=== PATIENT | male | born 1995 | race Caucasian/White ===

== ENCOUNTER 2017-10-16 17:13 | Emergency (ER) | payer OTHER ==
--- NOTE | 2017-10-16 17:31 | EDPHY ---
HPI/HX/ROS/PE/MDM - Data Points Imaging: I viewed and interpreted images myself Narrative: CHIEF COMPLAINT: Right shoulder injury HPI: The patient is a 22 y/o male complaining of a right shoulder injury and pain secondary to falling while snowboarding 3 hours ago. He caught an edge while snowboarding, fell, and immediately had right shoulder pain. Last PO was at 13: 00, 4.5 hours ago. Denies numbness, paresthesias, chest pain, abdominal pain or fever. REVIEW OF SYSTEMS: Aside from elements discussed in the HPI, a comprehensive 10-point review of systems was reviewed and is negative. PMH: Left labrum tear and dislocation SOCIAL HISTORY: Student at , originally from [place], [facility] PHYSICAL EXAM: General: Patient is alert, in no acute distress. ENT: Eyes are normal to inspection. ENT inspection normal. Neck: Normal inspection. Full range of motion. Respiratory: No respiratory distress. Breath sounds normal bilaterally. Cardiovascular: Regular rate and rhythm. Strong peripheral pulses. Normal cap refill. Right upper extremity: Obvious AC stepoff associated with tenderness. Light touch sensation and motor function is preserved in the axillary, median, radial and ulnar nerve distributions. There is a 2+ radial pulse with brisk cap refill. Neuro: Oriented x3. Normal motor function. Normal sensory function. (Dontae Mckenna) ED Course: 1732: BEENA Morgan will preform a right shoulder reduction. 1744: BEENA Morgan successfully reduced the shoulder; patient will be placed in a sling and have x-ray's taken to confirm the reduction. Reassessed patient and discussed imaging findings. I have advised the patient to have a follow up visit with an orthopedic surgeon in the next week. Return precautions provided; patient is comfortable with this plan. (Dontae Mckenna) MDM: Procedure: Dislocation reduction. The dislocation of the right shoulder was reduced using Arleen technique without complications. Post reduction the patient's neurovascular exam is normal. Post reduction x-ray demonstrates reduction of the joint to the anatomic position. The procedure was performed by myself, Sujata Morgan. (Sujata Morgan) Patient presents with shoulder dislocation that was reduced manually by my PA. Normal neuro exam. No evidence of other injury. (Dontae Mckenna) General Time Seen by Provider: 10/16/17 17:28 Initial Vital Signs: Initial Vital Signs Temperature (C) 36.4 C 10/16/17 17:17 Heart Rate 80 10/16/17 17:17 Respiratory Rate 18 10/16/17 17:17 Blood Pressure 164/87 H 10/16/17 17:17 O2 Sat (%) 98 10/16/17 17:17 O2 Delivery Mode Room Air Allergies/Adverse Reactions: No Known Allergies Allergy (Unverified 10/16/17 17:17) Home Medications: Medication Instructions Recorded NK [No Known Home Meds] 10/16/17 Departure - Departure Disposition: Home, Routine, Self-Care Clinical Impression: Dislocation of right shoulder joint Qualifiers: Encounter type: initial encounter Qualified Code(s): S43.004A - Unspecified dislocation of right shoulder joint, initial encounter Condition: Good Instructions: Shoulder Dislocation (ED) Additional Instructions: Rest, ice, elevation. Follow up with an orthopedic surgeon within one week. Return to the emergency department for worsening pain, swelling, numbness, weakness or other concerns. Wear sling at all times until reevaluation, but okay to shower and sleep without sling. You will likely need an MRI to further evaluate your injury. Use ibuprofen as directed for pain. Referrals: Lex Pollock MD [Medical Doctor] - As per Instructions Report Scribed for: Dontae Mckenna Report Scribed by: Dilia Fletcher Date of Report: 10/16/17 Time of Report: 17:32 Physician Review and Approval Statement: Portions of this note were transcribed by an ED scribe. I personally performed the history, physical exam, and medical decision making; and confirm the accuracy of the information in the transcribed note.
[2017-10-16 18:12] VITALS: BP 122/78
== END 2017-10-16 18:14 | disposition home or self-care (01) ==
PROC: 0RSJXZZ Reposition Right Shoulder Joint, External Approach (ICD-10-PCS; principal; 2017-10-16)
DX: S43.014A Anterior dislocation of right humerus, initial encounter (principal); V00.311A Fall from snowboard, initial encounter; Y99.8 Other external cause status; Y93.23 Activity, snow (alpine) (downhill) skiing, snowboarding, sledding, tobogganing and snow tubing